=== PATIENT | male | born 1975 | race Caucasian/White ===

== ENCOUNTER 2018-07-02 15:53 | Inpatient (IN) | payer OTHER ==
[~2018-07-02] VITALS: Ht 170.2 cm; Wt 97.5 kg
[~2018-07-02 15:53] MED LIST: BACTRIM DS TAB1 EACH PO; CLEOCIN HCL300 MG PO; DARVOCET-N 1001 EAC1 PO; DOXYCYCLINE 10100 MG PO; IBUPROFEN 800800 M1 PO; KEFLEX500 MG PO; NOHOMEMEDICATIONS; NORCO 5-325 TA1 EACH PO; PREDNISONE 10 M10 M1 PO
[2018-07-02 15:58] VITALS: BP 106/76
[2018-07-02 16:18] LABS: ABSOLUTE EOSINOPHILS 0.1 thou/uL (0.0-0.7); ABSOLUTE LYMPHOCYTES 0.9 thou/uL (0.8-5.3); ABSOLUTE MONOCYTES 0.2 thou/uL (0.0-1.2); ABSOLUTE NEUTROPHILS 5.3 thou/uL (1.6-8.1); BASOPHILS 0.5 %; EOSINOPHILS 0.8 %; HEMATOCRIT 45.3 % (42.0-52.0); HEMOGLOBIN 15.5 gm/dL (14.0-18.0); LYMPHOCYTES 13.2 %; MCH 30.9 pg (26.0-34.0); MCHC 34.3 g/dL (28.0-37.0); MCV 90.1 fL (80.0-100.0); MONOCYTES 3.2 %; MPV 6.9 fl. (7.2-11.1); NUCLEATED RBCS 0 /100WBC; PLATELET COUNT* 383 thou/uL (150-400); POLYS 82.3 %; RBC 5.03 mil/uL (4.50-6.00); RDW-CV 13.3 % (10.5-14.5); WBC 6.5 thou/uL (4.0-11.0)
[2018-07-02 16:30] LABS: ALBUMIN 3.7 g/dL (3.4-5.0); CALCIUM 8.6 mg/dL (8.5-10.1); CREATININE 1.3 mg/dL (0.6-1.3); POTASSIUM 3.1 mmol/L (3.5-5.1); TOTAL BILIRUBIN 0.5 mg/dL (<0.1-1.0)
[2018-07-02 16:36] LABS: INFLUENZA A ANTIGEN None Detected (None Detect); INFLUENZA B ANTIGEN None Detected (None Detect)
[2018-07-02] MEDS ORDERED: EPIPEN 2-P0.3 MG/0.3 IM (17:52)
[2018-07-02] MEDS ORDERED: PREDNISONE 20 M20 MG PO (17:52)
[2018-07-02] MEDS ORDERED: PEPCID20 MG PO (17:52)
[2018-07-02] MEDS ORDERED: BENADRYL25 MG PO (17:52)
[2018-07-02] MEDS ORDERED: ZPAK PO (18:36)
[2018-07-02 22:35] VITALS: BP 120/67
[2018-07-02 22:40] VITALS: BP 149/71
[2018-07-02] MEDS ORDERED: ZYRTEC10 M5 PO (22:47)
[2018-07-02] MEDS ORDERED: DIPHENHIST50 MG PO (22:48)
[2018-07-03 03:53] VITALS: BP 105/37
[2018-07-03 05:04] LABS: HEMATOCRIT 40.6 % (42.0-52.0); MCH 31.3 pg (26.0-34.0); MCHC 34.5 g/dL (28.0-37.0); MCV 90.7 fL (80.0-100.0); MPV 7.2 fl. (7.2-11.1); RBC 4.48 mil/uL (4.50-6.00); RDW-CV 13.5 % (10.5-14.5); WBC 5.6 thou/uL (4.0-11.0)
[2018-07-03 05:36] LABS: ALBUMIN 3.2 g/dL (3.4-5.0); CALCIUM 8.3 mg/dL (8.5-10.1); CREATININE 0.9 mg/dL (0.6-1.3); TOTAL BILIRUBIN 0.2 mg/dL (<0.1-1.0); TOTAL PROTEIN 6.8 g/dL (6.4-8.2)
[2018-07-03 05:39] LABS: POTASSIUM 4.1 mmol/L (3.5-5.1)
[2018-07-03 08:04] VITALS: BP 111/57
[2018-07-03 12:04] VITALS: BP 115/59
[2018-07-03 15:27] VITALS: BP 138/64
[2018-07-03 20:00] VITALS: BP 131/76
[2018-07-04] VITALS: BP 129/82
[2018-07-04 02:05] LABS: GLYCOHEMOGLOBIN (HGB A1C) 5.4 % (4.8-5.6)
[2018-07-04 04:00] VITALS: BP 142/66
[2018-07-04 04:32] LABS: HEMATOCRIT 38.7 % (42.0-52.0); HEMOGLOBIN 13.2 gm/dL (14.0-18.0); MCH 31.2 pg (26.0-34.0); MCHC 34.1 g/dL (28.0-37.0); MCV 91.5 fL (80.0-100.0); MPV 7.4 fl. (7.2-11.1); RBC 4.23 mil/uL (4.50-6.00); RDW-CV 13.6 % (10.5-14.5); WBC 13.5 thou/uL (4.0-11.0)
[2018-07-04 04:45] LABS: CALCIUM 7.8 mg/dL (8.5-10.1); CREATININE 0.9 mg/dL (0.6-1.3); MAGNESIUM 2.2 mg/dL (1.8-2.4); POTASSIUM 3.8 mmol/L (3.5-5.1)
[2018-07-04 08:00] VITALS: BP 99/43
[2018-07-04] MEDS ORDERED: PROTONIX40 M1 PO (11:34)
[2018-07-04] MEDS ORDERED: CEFDINIR300 MG PO (11:35)
[2018-07-04] MEDS ORDERED: PREDNISONE 10 M10 MG PO (11:37)
[2018-07-04 11:42] VITALS: BP 99/43
[2018-07-04 12:00] VITALS: BP 117/69
== END 2018-07-04 13:00 | disposition home or self-care (01) | DRG 915 ==
LOC: M.ERS 15:53 → M.TBA-ER 18:50 → M.2W 18:50
PROVIDERS: Nurse Practitioner Family; ADMIT Family Medicine
DX: T78.3XXA Angioneurotic edema, initial encounter (principal); J18.1 Lobar pneumonia, unspecified organism; F12.10 Cannabis abuse, uncomplicated; E87.6 Hypokalemia; R73.9 Hyperglycemia, unspecified; E83.42 Hypomagnesemia; F17.210 Nicotine dependence, cigarettes, uncomplicated; Z87.442 Personal history of urinary calculi; Z86.14 Personal history of Methicillin resistant Staphylococcus aureus infection; Z83.49 Family history of other endocrine, nutritional and metabolic diseases